=== PATIENT | female | born 1960 | race Caucasian/White ===

== ENCOUNTER → 2024-08-22 | Outpatient (CLI) | payer OTHER ==
--- NOTE | 2024-08-22 12:23 | FL ---
EXAMINATION TYPE: FL esophagus cervic/pharynx DATE OF EXAM: 08/22/2024 COMPARISON: None. CLINICAL INDICATION: Female, 64 years old with history of R13.10 dysphagia; PHH, recent weight loss. Epigastric and right upper quadrant pain. Symptoms of nausea and reflux and diarrhea. Patient takes r eflux medication. TECHNIQUE: A double contrast esophagram is performed utilizing air and barium. A total of 38 second s of fluoroscopic time was utilized during procedure and 85 images obtained. Total dose area product (DAP) in uGy*m?, mGy*cm? (or similar) : n/p. FINDINGS: The esophagus shows adequate motility and emptying into the stomach. Postsurgical change to the cervi olegario spine is present. A stent graft near the proximal right clavicle is noted. No evidence of fixed h iatal hernia or stricture noted. An overlying loop recorder is seen. No significant gastroesophageal reflux was seen during real time performance of this study. Cholecystectomy clips are appreciated. IMPRESSION: No significant abnormality is seen to account for patient's symptoms. [facility], , 08/22/2024 12:20 PM
== END | disposition home or self-care (01) ==
LOC: RADFLMAIN 09:18
PROVIDERS: ATTEND Internal Medicine Gastroenterology
DX: R13.10 Dysphagia, unspecified (principal)
CPT/HCPCS: 74210